=== PATIENT | female | born 1990 | race Caucasian/White ===

== ENCOUNTER 2018-12-25 23:48 | Emergency (ER) | payer SELFPAY | END 2018-12-26 00:18 | disposition left against medical advice (07) | LOC: SED 23:48 | DX: L02.413 Cutaneous abscess of right upper limb (principal); Z53.21 Procedure and treatment not carried out due to patient leaving prior to being seen by health care provider ==

== ENCOUNTER 2020-09-12 15:53 | Emergency (ER) | payer BC, MEDICAID ==
[~2020-09-12] VITALS: Ht 167.6 cm; Wt 79.4 kg
--- NOTE | 2020-09-12 15:55 | NUR ---
Pt triaged and placed in waiting room.
--- NOTE | 2020-09-12 16:00 | NUR ---
Pt walked in to ER with c/o rash to BUE, denies pain at this time, reports itching. States it started last night, denies any new medications or food. V/S stable, no acute distress noted.
--- NOTE | 2020-09-12 16:05 | NUR ---
Note denise in ED - 09/12/20 at 1620 by MAIA RECEIVED AND IN ROOM 3. BIB MEDICS FROM HOME, HERE FOR C/O N,V. SKIN WARM AND DRY. COMMUNICATES CLEARLY IN FULL COMPLETE SENTECES, TRAVIS CP/SOB
--- NOTE | 2020-09-12 16:18 | NUR ---
Bandar walker in [facility] - 09/12/20 at [address] SHEA IN TO ASSESS
[2020-09-12] MEDS ORDERED: DIPHENHYDRAMINE HCL 25 MG CAPSULE PO ONE (16:30)
[2020-09-12 16:34] VITALS: BP_SYST 143
--- NOTE | 2020-09-12 16:35 | NUR ---
ER Dr. Chawla at bedside examining patient.
[2020-09-12 16:51] VITALS: BP_SYST 143
--- NOTE | 2020-09-12 16:52 | NUR ---
Patient given written and verbal discharge instructions and verbalizes understanding. ER MD discussed with patient the results and treatment provided. Patient in stable condition. ID arm band removed. No prescriptions given. Patient educated on pain management and to follow up with PMD. Pain Scale 0. Opportunity for questions provided and answered. Medication side effect fact sheet provided.
== END 2020-09-12 16:52 | disposition home or self-care (01) ==
LOC: SED 15:53
DX: R21 Rash and other nonspecific skin eruption (principal)
CPT/HCPCS: 99282; Q0163